=== PATIENT | female | born 1960 | race Asian ===

== ENCOUNTER → 2021-01-23 | Day surgery (SDC) | payer MEDICAID ==
[~2021-01-23] MED LIST: AMLO5TAB88 PO; ASCO-316 PO; ATOR20TA65 PO; CHOL100046 PO; LIDOCAINE HCL 1% 20ML VIAL (Pyxis) INJ ONE; LOSA100T32 PO; SODIUM BICARBONATE 4% (2.4MEQ) 5ML VIAL IV ONE
== END | disposition home or self-care (01) ==
LOC: LAB 10:34
PROVIDERS: ATTEND Surgery
DX: C50.911 Malignant neoplasm of unspecified site of right female breast (principal); R92.8 Other abnormal and inconclusive findings on diagnostic imaging of breast; Z79.82 Long term (current) use of aspirin; Z79.899 Other long term (current) drug therapy; Z80.2 Family history of malignant neoplasm of other respiratory and intrathoracic organs; Z82.49 Family history of ischemic heart disease and other diseases of the circulatory system; Z83.3 Family history of diabetes mellitus
CPT/HCPCS: 19285; J3490

== ENCOUNTER → 2021-01-23 | Outpatient (CLI) | payer MEDICAID ==
[~2021-01-23] MED LIST changes: -LIDOCAINE HCL 1% 20ML VIAL (Pyxis) INJ ONE; -SODIUM BICARBONATE 4% (2.4MEQ) 5ML VIAL IV ONE
== END | disposition home or self-care (01) ==
LOC: LAB 09:00
PROVIDERS: ATTEND Surgery
DX: Z01.812 Encounter for preprocedural laboratory examination (principal); Z20.822 Contact with and (suspected) exposure to COVID-19
CPT/HCPCS: 87426